=== PATIENT | female | born 1975 | race Caucasian/White ===

== ENCOUNTER 2017-12-08 07:33 | Emergency (ER) | payer OTHER ==
[~2017-12-08] VITALS: Ht 160 cm; Wt 63.5 kg
[2017-12-08 07:33] VITALS: BP 117/68
[~2017-12-08 07:33] MED LIST: DIFLUCAN150 MG PO; NO DAILY MEDS
== END 2017-12-08 08:52 | disposition home or self-care (01) ==
LOC: ED 07:33
DX: S60.221A Contusion of right hand, initial encounter (principal); F17.200 Nicotine dependence, unspecified, uncomplicated; W22.8XXA Striking against or struck by other objects, initial encounter; Y93.89 Activity, other specified; Y92.89 Other specified places as the place of occurrence of the external cause; Y99.8 Other external cause status

== ENCOUNTER → 2018-01-14 | Outpatient (CLI) | payer OTHER | END | disposition home or self-care (01) | LOC: RAD 09:59 | DX: M54.40 Lumbago with sciatica, unspecified side (principal) ==

== ENCOUNTER 2018-06-11 08:45 | Emergency (ER) | payer OTHER ==
[~2018-06-11] VITALS: Ht 162.5 cm; Wt 68.0 kg
[2018-06-11 08:48] VITALS: BP 119/70
[2018-06-11] MEDS ORDERED: KEFLEX500 M1 PO (09:52)
[2018-06-11] MEDS ORDERED: DIFLUCAN150 MG PO (10:11)
== END 2018-06-11 10:01 | disposition home or self-care (01) ==
LOC: ED 08:45
DX: S81.011A Laceration without foreign body, right knee, initial encounter (principal); S50.312A Abrasion of left elbow, initial encounter; S60.418A Abrasion of other finger, initial encounter; W18.39XA Other fall on same level, initial encounter; Y93.89 Activity, other specified; Y92.480 Sidewalk as the place of occurrence of the external cause; Y99.8 Other external cause status

== ENCOUNTER 2018-11-14 11:26 | Emergency (ER) | payer OTHER ==
[~2018-11-14 11:26] MED LIST changes: +KEFLEX500 M1 PO
[2018-11-14 11:28] VITALS: BP 110/60
[2018-11-14 12:10] LABS: BILIRUBIN NEGATIVE (NEGATIVE); BLOOD NEGATIVE (NEGATIVE); CLARITY CLEAR (CLEAR); COLOR YELLOW (YELLOW); GLUCOSE NEGATIVE (NEGATIVE); KETONE NEGATIVE (NEGATIVE); LEUKO ESTERASE NEGATIVE (NEGATIVE); NITRITE NEGATIVE (NEGATIVE); PH 5.5 (5.0-9.0); SPECIFIC GRAVITY <= 1.005 (1.005-1.030); UROBILINOGEN 0.2 E.U./dl (0.2-1.0)
[2018-11-14 12:22] LABS: URINE AMPHETAMINES < 1000 (1000ng/ml); URINE BARBITURATES < 200 (200ng/ml); URINE BENZODIAZEPINES < 200 (200ng/ml); URINE CANNABINOIDS (THC) > 50 (50ng/ml); URINE COCAINE < 300 (300ng/ml); URINE METHADONE < 300 (300ng/ml); URINE OPIATES < 300 (300ng/ml)
[2018-11-14 12:24] LABS: URINE PHENCYCLIDINE < 25 (25ng/ml)
[2018-11-14 13:02] LABS: BACTERIA 1+; EPITHELIAL CELLS 15-20
== END 2018-11-14 14:10 | disposition home or self-care (01) ==
LOC: ED 11:26
PROVIDERS: Family Medicine
DX: F10.920 Alcohol use, unspecified with intoxication, uncomplicated (principal); F17.200 Nicotine dependence, unspecified, uncomplicated; Y90.9 Presence of alcohol in blood, level not specified

== ENCOUNTER 2020-05-17 17:37 | Emergency (ER) | payer OTHER ==
[~2020-05-17] VITALS: Ht 162.5 cm; Wt 72.6 kg
[2020-05-17 17:43] VITALS: BP 146/73
[2020-05-17] MEDS ORDERED: IBUPROFEN600 MG PO (20:11)
[2020-05-17] MEDS ORDERED: HYDROCODONE-AC1 EAC1 PO (20:11)
== END 2020-05-17 20:52 | disposition home or self-care (01) ==
LOC: ED 17:37
DX: S82.831A Other fracture of upper and lower end of right fibula, initial encounter for closed fracture (principal); F17.200 Nicotine dependence, unspecified, uncomplicated; X50.9XXA Other and unspecified overexertion or strenuous movements or postures, initial encounter; Y93.89 Activity, other specified; Y92.89 Other specified places as the place of occurrence of the external cause; Y99.8 Other external cause status

== ENCOUNTER → 2020-05-23 | Outpatient (CLI) | payer OTHER ==
[~2020-05-23] MED LIST changes: +HYDROCODONE-AC1 EAC1 PO; +IBUPROFEN600 MG PO
== END | disposition home or self-care (01) ==
LOC: ORTHO 11:53
PROVIDERS: ATTEND Orthopaedic Surgery
DX: S82.831D Other fracture of upper and lower end of right fibula, subsequent encounter for closed fracture with routine healing (principal); R60.0 Localized edema; X58.XXXD Exposure to other specified factors, subsequent encounter

== ENCOUNTER → 2020-06-01 | Outpatient (CLI) | payer OTHER | END | disposition home or self-care (01) | LOC: ORTHO 00:48 | PROVIDERS: ATTEND Orthopaedic Surgery | DX: S82.231A Displaced oblique fracture of shaft of right tibia, initial encounter for closed fracture (principal); X58.XXXA Exposure to other specified factors, initial encounter; Y93.89 Activity, other specified; Y92.89 Other specified places as the place of occurrence of the external cause; Y99.8 Other external cause status ==

== ENCOUNTER → 2020-06-09 | Outpatient (CLI) | payer OTHER | END | disposition home or self-care (01) | LOC: ORTHO 01:00 | PROVIDERS: ATTEND Orthopaedic Surgery | DX: S82.64XD Nondisplaced fracture of lateral malleolus of right fibula, subsequent encounter for closed fracture with routine healing (principal); X58.XXXD Exposure to other specified factors, subsequent encounter ==

== ENCOUNTER → 2020-07-01 | Outpatient (CLI) | payer OTHER | END | disposition home or self-care (01) | LOC: RAD 01:46 | PROVIDERS: ATTEND Orthopaedic Surgery | DX: S82.64XD Nondisplaced fracture of lateral malleolus of right fibula, subsequent encounter for closed fracture with routine healing (principal); X58.XXXD Exposure to other specified factors, subsequent encounter ==

== ENCOUNTER → 2022-03-12 | Outpatient (CLI) | payer OTHER | END | disposition home or self-care (01) | LOC: RESCLI 04:37 | PROVIDERS: ATTEND Internal Medicine | DX: C50.911 Malignant neoplasm of unspecified site of right female breast (principal); F42.9 Obsessive-compulsive disorder, unspecified; K21.9 Gastro-esophageal reflux disease without esophagitis; F41.9 Anxiety disorder, unspecified; F17.210 Nicotine dependence, cigarettes, uncomplicated; R30.0 Dysuria; Z98.890 Other specified postprocedural states; Z79.899 Other long term (current) drug therapy ==